=== PATIENT | female | born 1945 | race Caucasian/White ===

== ENCOUNTER 2021-10-01 12:36 | Emergency (ER) | payer MEDICARE, OTHER ==
[~2021-10-01] VITALS: Ht 152.4 cm; Wt 91.2 kg
[2021-10-01 12:36] VITALS: BP 114/56
--- NOTE | 2021-10-01 12:36 | NUR ---
75 Y FEMALE BIBA FROM [facility] DUE TO FEVER/CHILLS, N/V, AND SOB. PER EMS PT WAS SATING AT AROUND 90% ON RA UPON ARRIVAL. PT STATED SHE HAS BEEN FEELING FAITGUE AND RUN DOWN RECENTLY. PT STATED THIS AM SHE WAS EXPERINCING CHILLS AND FATIGUE THIS AM. UPON ARRIVAL GLUCOSE IS 144. ORAL TEMP IS 100.9 AT THIS TIME. BREATH SOUNDS DIMINISHED IN BILATERAL BASES. PER PT SHE HAS HAD SOME NAUSEA THIS AM, BUT DENIES ANY AT THIS TIME. SKIN IS DRY, BUT BRUISING NOTED ON BILATERAL UE AND LE. LE EDEMA NOTED IN BILATERAL. PT IS WARM TO TOUCH AT THIS TIME. PT CURRENTLY A&OX4. PT DENIES ANY CHEST PAIN AT THIS TIME. PMH: A. FIB, CHF, COPD, PNA, HYPOTHYROID (SEE PT CHART FOR FULL LIST OF MED HX) NKA Addendum: 10/01/21 at 1720 by [email or web address] REDNESS/CHAPPING NOTED ON PT [place]
--- NOTE | 2021-10-01 12:37 | NUR ---
PT STRIPPED OF CLOTHES AND PLACED INTO GOWN. BLANKETS REMOVED DUE TO PT TEMP AT THIS TIME. PT ALSO PLACED ONTO CARDIC MONITOR.
--- NOTE | 2021-10-01 12:49 | NUR ---
PT GURNEY TO BED 10 VIA DS BY [facility] MACHINE LABORER, PT PLACED ON V/S MONITOR AND EKG TAKEN PER RN'S ORDERS. EKG READS ATRIAL FIBRILLATION AT 128 HR, ERMD NOTIFIED
[2021-10-01] MEDS ORDERED: ACETAMINOPHEN 325 MG TAB PO ONE (12:50)
--- NOTE | 2021-10-01 13:00 | NUR ---
18 G IV ESTABLISHED IN R AC
--- NOTE | 2021-10-01 13:17 | NUR ---
# 16 FR Urinary catheter inserted utilizing sterile technique. Immediate return of 20 ml YELLOW urine noted. Urine sample collected and sent to lab. Pt tolerated procedure WELL.
--- NOTE | 2021-10-01 13:17 | NUR ---
XRAY BEDSIDE WITH PATIENT
--- NOTE | 2021-10-01 13:18 | NUR ---
LAB BEDSIDE WITH PATIENT
--- NOTE | 2021-10-01 13:20 | NUR ---
PT PROVIDED WITH [place]E CARE AND PLACED INTO A FRESH DIAPER
--- NOTE | 2021-10-01 13:25 | NUR ---
[facility] COLLECTED BEDSIDE AND HANDED TO CHASSIS WIRER LEXIE
[2021-10-01 13:36] LABS: BASOPHILS % (AUTO) 0.2 % (0.0-2.0); EOSINOPHILS % (AUTO) 0.4 % (0.0-4.0); HEMATOCRIT 37.8 % (36-48); HEMOGLOBIN 12.7 g/dL (12.0-16.0); LYMPHOCYTES # (AUTO) 0.2 K/uL (2.5-16.5); LYMPHOCYTES % (AUTO) 1.9 % (20.5-51.1); MEAN CORPUSCULAR HEMOGLOBIN 30 pg (27-31); MEAN CORPUSCULAR HGB CONC 34 g/dL (33-37); MEAN CORPUSCULAR VOLUME 89.7 fL (80-94); MONOCYTES # (AUTO) 0.5 K/uL (0.8-1.0); NEUTROPHILS % (AUTO) 92.5 % (42.2-75.2); PLATELET COUNT (AUTO) 216 K/uL (140-450); RED BLOOD CELL COUNT(AUTO) 4.22 MIL/uL (4.20-5.40); RED CELL DISTRIBUTION WIDTH 15.1 % (11.6-13.7); WHITE BLOOD COUNT (AUTO) 10.8 K/uL (4.8-10.8)
[2021-10-01 14:10] LABS: ALBUMIN 2.6 g/dL (3.4-5.0); ANION GAP 12.1 (8-16); ASPARTATE AMINOTRANSFERASE 270 U/L (15-37); CARBON DIOXIDE 28.6 mmol/L (21-32); CHLORIDE 104 mmol/L (98-107); CREATININE 0.7 mg/dL (0.6-1.3); GLUCOSE 147 mg/dL (74-106); LIPASE 93 U/L (73-393); POTASSIUM 3.7 mmol/L (3.5-5.1); SODIUM SERUM 141 mmol/L (136-145); UREA NITROGEN, BLOOD 12 mg/dL (7-18)
--- NOTE | 2021-10-01 14:10 | NUR ---
CURRENT ORAL TEMP IS 97.9. PT PROVIDED WITH ICE CHIPS AT THIS TIME
[2021-10-01 14:42] LABS: PROTHROMBIN TIME 10.4 secs (10.8-13.4)
--- NOTE | 2021-10-01 14:53 | NUR ---
US TECH BEDSIDE WITH PATIENT
[2021-10-01 14:58] LABS: APPEARANCE,URINE CLEAR (CLEAR); BILIRUBIN,URINE NEGATIVE (NEGATIVE); BLOOD, URINE NEGATIVE (NEGATIVE); COLOR,URINE YELLOW (YELLOW); LEUKOCYTE ESTERASE ,URINE NEGATIVE (NEGATIVE); NITRITE, URINE NEGATIVE (NEGATIVE); UGLUCOSE NEGATIVE (NEGATIVE)
[2021-10-01] MEDS ORDERED: PIPERACILLIN/TAZOBACTAM 3.375 GM in DEXTROSE 5% 50 ML IV ONE (15:30)
[2021-10-01] MEDS ORDERED: NACL 0.9% 500 ML IV ONE (15:30)
[2021-10-01] MEDS ORDERED: DILTIAZEM 25 MG/5 ML VIAL IVP ONE ×2 (15:30→17:25)
[2021-10-01] MEDS ORDERED: PIPERACILLIN/TAZOBACTAM 3.375 GM VIAL IV ONE (15:43)
--- NOTE | 2021-10-01 16:08 | NUR ---
IV INFLITRATED ON R AC. PT PROVIDED WITH WARM PACK AND IV D/C
--- NOTE | 2021-10-01 16:24 | NUR ---
PT PROVIDED WITH JELLO AND ICE CHIPS BEDSIDE
--- NOTE | 2021-10-01 16:28 | NUR ---
PT PROVIDED PERMISSION TO SPEAK WITH DAUGHTER YASMANY. PROVIDED DAUGHTER WITH UPDATE ON PT STATUS AND DAUGHTER ASKED TO BE CONTACTED WITH AN ETA FOR [place] PHONE #: [phone]
[2021-10-01] MEDS ORDERED: AZITHROMYCIN 500 MG in DEXTROSE 5% 250 ML IV ONE (16:30)
--- NOTE | 2021-10-01 16:38 | NUR ---
CONSENT FOR [place] SIGNED BEDSIDE AND PLACED INTO PT CHART
[2021-10-01] MEDS ORDERED: AZITHROMYCIN 500 MG INJ VIAL IV ONE (16:55)
--- NOTE | 2021-10-01 17:18 | NUR ---
DR. SHETH BEDSIDE PERFORMING FURTHER EVALUATION ON PT
[2021-10-01] MEDS ORDERED: ASPI-1822 PO (17:58)
[2021-10-01] MEDS ORDERED: ATOR10TA PO (17:58)
[2021-10-01] MEDS ORDERED: OMEP20EC11 PO (17:58)
[2021-10-01] MEDS ORDERED: POTA10TA70 PO ×2 (17:58)
[2021-10-01] MEDS ORDERED: FLUO40CA6 PO (17:58)
[2021-10-01] MEDS ORDERED: QUET25TA PO (17:58)
[2021-10-01] MEDS ORDERED: FURO-570 PO (17:58)
[2021-10-01] MEDS ORDERED: VITA1TAB44 PO (17:58)
[2021-10-01] MEDS ORDERED: CICL160A IH ×2 (17:58→18:26)
[2021-10-01] MEDS ORDERED: KETOROLAC 30 MG/ML VIAL IVP ONE (18:10)
--- NOTE | 2021-10-01 18:11 | NUR ---
PT CURRENTLY STATED SHE IS EXPERINCING A PIERRE THIS TIME. ER MADE AWARE AND ORDERED MED
--- NOTE | 2021-10-01 18:22 | NUR ---
PROVIDED UPDATE TO MINNA MERAZ FROM [facility].
[2021-10-01] MEDS ORDERED: PRON INH (18:26)
[2021-10-01] MEDS ORDERED: LEVO750T51 PO (18:26)
[2021-10-01] MEDS ORDERED: DILT-135 PO (18:26)
[2021-10-01] MEDS ORDERED: VITB12 PO (18:26)
[2021-10-01] MEDS ORDERED: LEVO0.2T5 PO (18:26)
[2021-10-01] MEDS ORDERED: DULO30EC PO (18:26)
--- NOTE | 2021-10-01 18:50 | NUR ---
PT REPOISITONED FOR COMFORT AT THIS TIME. HOB ELEVATED
--- NOTE | 2021-10-01 20:00 | NUR ---
RESTING IN BED WITH EYES OPEN, RESPIRATIONS REGULAR AND UNLABORED. WATER GIVEN , TOLERATES WELL. O2 CONTINUES AT 2L N/C
--- NOTE | 2021-10-01 23:32 | NUR ---
[facility] TRANSPORT AT BEDSIDE
[2021-10-01 23:35] VITALS: BP 114/56
--- NOTE | 2021-10-01 23:45 | NUR ---
CALL TO GIVE REPORT TO EMEKA, NURSE SUNITA. WILL CALL BACK IN 10 MINUTES
--- NOTE | 2021-10-01 23:55 | NUR ---
TRANSPORT TO [facility] VIA [facility]
--- NOTE | 2021-10-02 00:02 | NUR ---
REPORT CALLED TO MINNA RUEDA AT [facility]
--- NOTE | 2021-10-02 00:02 | NUR ---
ERIKA Coburn [place] COORDINATOR FROM [place] CALLED FOR UPDATED VITALS/LAST SET OF VITALS. GAVE RN A LAST SET OF VITALS.
== END 2021-10-02 00:02 | disposition short-term general hospital (02) ==
LOC: MED 12:36
DX: I48.20 Chronic atrial fibrillation, unspecified (principal); Z20.822 Contact with and (suspected) exposure to COVID-19; R50.9 Fever, unspecified; R53.1 Weakness; J44.9 Chronic obstructive pulmonary disease, unspecified; E11.9 Type 2 diabetes mellitus without complications; Z90.49 Acquired absence of other specified parts of digestive tract
CPT/HCPCS: 36415; 71045; 76705; 80053; 81003; 83605; 83690; 83880; 84484; 85025; 85610; 87040; 87086; 87426; 96365; 96367; 96375; 96376; 99291; J0456; J1885; J2543; J3490; J7030; Q0092; 93005